=== PATIENT | female | born 1990 | race Caucasian/White ===

== ENCOUNTER → 2023-07-02 06:49 | Outpatient (REF) | payer BC, SELFPAY | LOC: PNTC 06:49 | PROVIDERS: ATTENDING PHYSICIAN Obstetrics & Gynecology | DX: O99.612 Diseases of the digestive system complicating pregnancy, second trimester (principal); O34.219 Maternal care for unspecified type scar from previous cesarean delivery; O99.891 Other specified diseases and conditions complicating pregnancy | CPT/HCPCS: 76811 ==

== ENCOUNTER → 2023-07-30 09:05 | Outpatient (REF) | payer BC, SELFPAY | LOC: PNTC 09:05 | PROVIDERS: ATTENDING PHYSICIAN Obstetrics & Gynecology | DX: O99.612 Diseases of the digestive system complicating pregnancy, second trimester (principal); O34.10 Maternal care for benign tumor of corpus uteri, unspecified trimester | CPT/HCPCS: 76816 ==

== ENCOUNTER → 2023-08-27 07:58 | Outpatient (REF) | payer BC, SELFPAY | LOC: PNTC 07:58 | PROVIDERS: ATTENDING PHYSICIAN Obstetrics & Gynecology | DX: O99.612 Diseases of the digestive system complicating pregnancy, second trimester (principal); O34.10 Maternal care for benign tumor of corpus uteri, unspecified trimester; O45.90 Premature separation of placenta, unspecified, unspecified trimester | CPT/HCPCS: 76816 ==

== ENCOUNTER → 2023-09-24 09:12 | Outpatient (REF) | payer BC, SELFPAY | LOC: PNTC 09:12 | PROVIDERS: ATTENDING PHYSICIAN Obstetrics & Gynecology | DX: O99.612 Diseases of the digestive system complicating pregnancy, second trimester (principal); O34.10 Maternal care for benign tumor of corpus uteri, unspecified trimester; O45.90 Premature separation of placenta, unspecified, unspecified trimester | CPT/HCPCS: 76816 ==

== ENCOUNTER → 2023-10-23 10:40 | Outpatient (REF) | payer BC, SELFPAY | LOC: PNTC 10:40 | PROVIDERS: ATTENDING PHYSICIAN Obstetrics & Gynecology | DX: O99.612 Diseases of the digestive system complicating pregnancy, second trimester (principal); O34.10 Maternal care for benign tumor of corpus uteri, unspecified trimester; O45.90 Premature separation of placenta, unspecified, unspecified trimester | CPT/HCPCS: 76816 ==

== ENCOUNTER 2023-11-13 05:42 | Inpatient (IN) | payer BC, SELFPAY ==
[2023-11-13 05:59] VITALS: BP 109/78; BMI 30.4
[2023-11-13 06:21] LABS: Hematocrit 36.8 % (37.0-47.0); Hemoglobin 12.3 g/dL (12.0-16.0); Mean Corp Hgb Conc. 33.4 g/dL (33.0-37.0); Mean Corpuscular Hgb 27.6 pg (27.0-31.0); Mean Corpuscular Volume 82.5 fL (81.0-99.0); Mean Platelet Volume 10.9 fL (7.4-10.4); Platelet Count 279 10^3/uL (130-400); Red Blood Cell Count 4.46 10^6/uL (4.20-5.40); Red Cell Dist. Width 17.1 % (11.5-14.5); White Blood Cell Count 7.7 10^3/uL (4.8-10.8)
[2023-11-13] MEDS: BICITRA 30 ML PO (07:17)
[2023-11-13] MEDS: TYLENOL 1000 MG PO (07:17)
[2023-11-13] MEDS: ANCEF 10 IV (07:18)
[2023-11-13] MEDS: LR 1000 IV (07:28)
[2023-11-13] MEDS: TORADOL 15 MG IV ×2 (14:41→21:11)
[2023-11-13] MEDS: PRENATAL PLUS PO (14:51)
[2023-11-14] MEDS: TORADOL 15 MG IV ×2 (03:00→08:59)
--- NOTE | 2023-11-14 03:41 | DOWNTIME ---
There was a PASSN[employer] Client Bulker Downtime on 11/14/2023 from 0100 to 11/14/2023 at 0337. Downtime documentation of patient's care, including medication administrations, has been reconciled in the electronic record per guidelines. Refer to the
patient's paper chart under the miscellaneous tab to see printed paper medication records and downtime forms.
[2023-11-14 05:03] LABS: Hematocrit 33.9 % (37.0-47.0); Hemoglobin 11.1 g/dL (12.0-16.0); Mean Corp Hgb Conc. 32.7 g/dL (33.0-37.0); Mean Corpuscular Hgb 26.9 pg (27.0-31.0); Mean Corpuscular Volume 82.3 fL (81.0-99.0); Mean Platelet Volume 11.1 fL (7.4-10.4); Platelet Count 247 10^3/uL (130-400); Red Blood Cell Count 4.12 10^6/uL (4.20-5.40); Red Cell Dist. Width 17.1 % (11.5-14.5); White Blood Cell Count 8.4 10^3/uL (4.8-10.8)
[2023-11-14] MEDS: SYNTHROID PO (05:52)
[2023-11-14] MEDS: PRENATAL PLUS 1 TABLET PO (08:44)
[2023-11-14] MEDS: MYLICON 80 MG PO (12:24)
--- NOTE | 2023-11-14 13:11 | W.PN.ANS.POP ---
Anesthesia Post Operative
- Anesthesia Post Op Note
Vital Signs Stable-See Nursing Note: Yes
Airway Patent: Yes
Adequate Pain Control: Yes
Change in Mental Status: No
Current Postoperative Nausea & Vomiting: No
Anesthesia Complications: No
General Anesthetic Recall: No
Unplanned Admission: No
Post Op Hydration Adequate: Yes
[2023-11-14] MEDS: TYLENOL 650 MG PO ×2 (13:17→21:28)
[2023-11-14] MEDS: MOTRIN 600 MG PO ×2 (15:19→21:28)
[2023-11-14] MEDS: SENOKOT-S 1 TABLET PO (16:20)
[2023-11-15] MEDS: MOTRIN 600 MG PO ×3 (04:24→23:41)
[2023-11-15] MEDS: TYLENOL 650 MG PO ×4 (04:24→23:42)
[2023-11-15] MEDS: SYNTHROID 150 MCG PO (06:08)
[2023-11-15] MEDS: SENOKOT-S 1 TABLET PO (08:55)
[2023-11-15] MEDS: PRENATAL PLUS 1 TABLET PO (08:55)
[2023-11-16] MEDS: SYNTHROID 150 MCG PO (05:48)
[2023-11-16] MEDS: TYLENOL 650 MG PO (09:14)
[2023-11-16] MEDS: SENOKOT-S 1 TABLET PO (09:14)
[2023-11-16] MEDS: MOTRIN 600 MG PO (09:14)
[2023-11-16] MEDS: PRENATAL PLUS 1 TABLET PO (09:14)
[2023-11-16 13:45] LABS: Syphilis/T. pallidum Ab Reflex Negative (Negative)
== END 2023-11-16 12:06 | disposition home or self-care (01) | DRG 787 ==
LOC: LDRP 05:42
PROVIDERS: ADMITTING PHYSICIAN Obstetrics & Gynecology; FAMILY PHYSICIAN Family Medicine
PROC: 10D00Z1 Extraction of Products of Conception, Low, Open Approach (ICD-10-PCS; 2023-11-13)
DX: O34.211 Maternal care for low transverse scar from previous cesarean delivery (principal); K50.90 Crohn's disease, unspecified, without complications; Z3A.39 39 weeks gestation of pregnancy; Z37.0 Single live birth; O99.284 Endocrine, nutritional and metabolic diseases complicating childbirth; E03.9 Hypothyroidism, unspecified; O99.62 Diseases of the digestive system complicating childbirth; O99.02 Anemia complicating childbirth; D64.9 Anemia, unspecified; E05.00 Thyrotoxicosis with diffuse goiter without thyrotoxic crisis or storm; E28.2 Polycystic ovarian syndrome; O99.824 Streptococcus B carrier state complicating childbirth; G43.909 Migraine, unspecified, not intractable, without status migrainosus; Z80.3 Family history of malignant neoplasm of breast; Z80.8 Family history of malignant neoplasm of other organs or systems; Z82.0 Family history of epilepsy and other diseases of the nervous system; Z83.79 Family history of other diseases of the digestive system; Z79.890 Hormone replacement therapy
CPT/HCPCS: 88307; 36415; 85027; 86780; 86850; 86900; 86901

== ENCOUNTER 2024-11-03 11:19 | Emergency (ER) | payer BC, SELFPAY ==
[2024-11-03 11:22] VITALS: BP 149/85
[2024-11-03 11:57] LABS: % Basophils 0.8 % (0-2); % Eosinophils 0.8 % (0-6); % Immature Granulocytes 0.2 % (0-0.5); % Lymphocytes 17.5 % (20.5-51.1); % Monocytes 5.4 % (1.7-9.3); % Neutrophils 75.3 % (42.2-75.2); Absolute Basophils 0.1 10^3/uL (0-0.2); Absolute Eosinophils 0.1 10^3/uL (0-0.7); Absolute Lymphocytes 1.7 10^3/uL (1.2-3.4); Absolute Monocytes 0.5 10^3/uL (0.1-0.6); Absolute Neutrophils 7.1 10^3/uL (1.4-6.5); Hematocrit 37.1 % (37.0-47.0); Hemoglobin 12.4 g/dL (12.0-16.0); Mean Corp Hgb Conc. 33.4 g/dL (33.0-37.0); Mean Corpuscular Hgb 26.7 pg (27.0-31.0); Mean Corpuscular Volume 79.8 fL (81.0-99.0); Mean Platelet Volume 10.3 fL (7.4-10.4); Nucleated Red Blood Cells % 0 %; Platelet Count 363 10^3/uL (130-400); Red Blood Cell Count 4.65 10^6/uL (4.20-5.40); White Blood Cell Count 9.4 10^3/uL (4.8-10.8)
[2024-11-03 12:30] LABS: ALT (SGPT) 18 U/L (0-35); AST (SGOT) 17 U/L (14-36); Albumin 4.9 g/dl (3.5-5.0); Alkaline Phosphatase 60 U/L (38-126); Blood Urea Nitrogen 13 mg/dl (7-17); Calcium 9.8 mg/dl (8.4-10.2); Carbon Dioxide 24 mmol/L (22-30); Chloride 104 mmol/L (98-107); Glucose 96 mg/dl (70-99); Potassium 4.3 mmol/L (3.5-5.1); Sodium 139 mmol/L (135-145); Total Bilirubin 0.6 mg/dl (0.2-1.3); Total Protein 8.1 g/dl (6.3-8.2); eGFR > 60.00
--- NOTE | 2024-11-03 12:46 | ED.GENMED ---
History of Present Illness
General
Chief Complaint: Problems
Source: patient
Time Seen by Provider: 11/03/24 12:27
History of Present Illness
History of Present Illness:
34-year-old female presents emergency department, LMP September 10, with report that her beta-hCG measured Sunday and Sunday or not increasing appropriately. She estimates that the value was 73,000 and then 86,000 on subsequent day. She advised to
come here by her [employer]PER[employer] from her [employer] group. Patient has multiple complaints, overall just feeling 'off associated with feeling generally shaky and freezing like she cannot get warm. This does not feel like a typical and that she did not
have the typical nausea vomiting breast tenderness. However, she has developed some mild nausea and vomiting over the last 2 days which she suspects may be related to anxiety. She has intermittent cramping of her lower back and she also notes
discomfort in her back that 'comes and goes' lasting a minute or so at a time. She also had an episode of feeling like the room was spinning over the weekend although not at this time. She has intermittent chest tightness that she suspects may be
related to anxiety. She denies dyspnea, abdominal pain, vaginal bleeding or discharge, or other complaints.
Past History
Past History
ED Past Medical History: Hypothyroidism and Other (Crohn's)
ED Past Surgical History: Cholecystectomy, Gynecological and Other (Thyroid ablation)
Social History
Tobacco: Non-smoker
Alcohol: None
Drug: None
Personal:
Living: with family
Phy Exam
Physical Exam
Physical Exam:
GENERAL: Alert , in no apparent distress
EYE: pupils equal and reactive
NECK: Supple, no significant adenopathy.
ENT: o/p clr, mmm.
CARDIAC: Regular rate and rhythm .
LUNGS: Clear breath sounds bilaterally, no acute respiratory distress, no wheezes/rales/rhonchi
ABDOMEN: Soft, mild luq pain with palpatiohn of rlq/suprapubic area, no r/g, no cvat
NEUROLOGICAL: Alert and oriented, no focal neuro deficits
SKIN: Warm and dry, skin intact.
MUSCULOSKELETAL: No edema, well perfused.
PSYCH: Normal and appropriate interaction.
Course
Orders/Labs/Results
Orders:
Orders
11/03/24 11:26
US W Transvaginal Urgent
Comment: sent in to r/o ectopic
Reason For Exam: approx 7 wks preg. hcg not rising as normal
11/03/24 11:34
Beta HCG Quantitative Urgent
Is this a screen?: No
Complete Blood Count/With Diff Urgent
Comprehensive Metabolic Panel Urgent
11/03/24 12:46
0.9% Sodium Chloride 500 ml [Nss] 500 ml IV BOLUS
11/03/24 12:49
Cardiac Monitoring- Treatment ONCE
11/03/24 14:32
Ondansetron Injectable [Zofran] 4 mg .ROUTE .STK-MED ONE
11/03/24 14:33
Ondansetron Injectable [Zofran] 4 mg IV NOW STA
Abnormal Lab Results
11/03/24
11:34
MCV 79.8 L fL
(81.0-99.0)
MCH 26.7 L pg
(27.0-31.0)
Absolute Neuts (auto) 7.1 H 10^3/uL
(1.4-6.5)
Neutrophils % 75.3 H %
(42.2-75.2)
Lymphocytes % 17.5 L %
(20.5-51.1)
11/03/24 11:34
11/03/24 11:34
Vital Signs
Initial and Last Documented VS:
Initial Vital Signs
Temp Pulse Resp BP Pulse Ox
98.0 F 104 16 149/85 100
11/03/24 11:22 11/03/24 11:22 11/03/24 11:22 11/03/24 11:22 11/03/24 11:22
Last Documented Vital Signs
Temp Pulse Resp BP Pulse Ox
98.0 F 91 12 149/85 100
11/03/24 11:22 11/03/24 13:15 11/03/24 13:15 11/03/24 11:22 11/03/24 13:15
Information
Weeks gestation: Weeks: (6w5d)
Location: Location: ([facility])
*Critical Care Note
Total Time (30-74mins, 75-104mins- exclusive of procedures): Not Applicable
Update Note
Update Note:
Patient presents to the Emergency Department with __abnormal hCG progression
Number and Complexity of Problems Addressed at the Encounter
� Chronic conditions affecting care:
� Acute Exacerbation and/or Progression of Chronic Illness:
� Differential Diagnosis includes: But not limited to ectopic , normal , threatened AB, etc. etc.
Amount and/or Complexity of Data to be Reviewed and Analyzed
� I performed an independent evaluation of and my interpretation is:
EKG:
CT:
Xrays:
Laboratory Studies:beta 154,000
Other:us There is a single live intrauterine gestation at 6 weeks 5 days +/- 1 week
� Review of other/old records reveals:
� Clinical information was obtained by an independent historian: who is bedside
� Prescriptions/Medications Considered but not given:
� Further testing considered but not performed:
Risk of Complications and/or Morbidity or Mortality of Patient Management
� Social determinants of health affecting care:
� Discussion with other providers (PCP, Hospitalists, Consultants, etc):
� Escalation of care including admission/observation vs risk of discharge considered: Patient and brought into a private room and made aware of labs and ultrasound, given copy of ultrasound. Case discussed with Dr. DELFINO
Lauri who agrees with plan for discharge. She already has an appointment for follow-up on Sunday. Patient is pleased with results, no further concerns or questions.
ED Attending Note
-
Portions of this chart may have been created with voice recognition software.� Occasional wrong word or��sound alike� substitutions may have occurred due to the inherent limitations of voice recognition software.
Discharge Plan
Departure
Patient Disposition: Home (Routine Discharge)
Date of Disposition: 11/03/24
Time of Disposition: 15:54
Patient with high blood pressure during this ER visit?: Yes
Condition: Good
Discharge Problem:
Instructions: symptoms, BLOOD PRESSURE
Prescriptions:
No Action
levothyroxine [Synthroid] 150 mcg Tablet
150 mcg PO DAILY
prenat.vits,neymar,lya-fakk-foris Tablet
1 tab PO 1XD
infliximab [Remicade] 100 mg Recon Soln
400 mg IV Q8W
ibuprofen 600 mg Tablet
600 mg PO Q6HPRN PRN (Reason: cramps) Qty: 90 0RF
Referrals:
UNKNOWN - PT DOES,NOT KNOW [Unknown Provider]
Activity Restrictions/Additional Instructions:
PLEASE SEE YOUR OB DOCTOR SCHEDULED ON SUNDAY. IF YOU DEVELOP BLEEDING, DIZZINESS, ABDOMINAL PAIN, PELVIC PAIN, CHEST PAIN, SHORTNESS OF BREATH, OR OTHER WORRISOME SIGNS, PLEASE RETURN TO THE ER IMMEDIATELY!
Interventions
Interventions:
*Risk Screen - Suicide Last Done: 11/03/24 11:22
*General Assessment Last Done: 11/03/24 13:20
*Neglect/Abuse Screening Last Done: 11/03/24 11:24
*ED- Fall Risk Assessment Last Done: 11/03/24 13:20
*ED COVID-19 Vaccine History Last Done: 11/03/24 13:20
ED-Female Genitourinary Assessment Last Done: 11/03/24 13:20
Discharge Date and Time
Print Language: SURINAMESE
[2024-11-03 13:03] VITALS: BMI 27.7
[2024-11-03] MEDS: NSS 500 IV (13:14)
[2024-11-03] MEDS: ZOFRAN 4 MG IV (14:34)
[2024-11-03 14:38] VITALS: BP 116/79
[2024-11-03 15:00] VITALS: BP 106/72
== END 2024-11-03 16:43 | disposition home or self-care (01) ==
LOC: EMR 11:19
PROVIDERS: Student in an Organized Health Care Education/Training Program; EMERGENCY PHYSICIAN Emergency Medicine; FAMILY PHYSICIAN Family Medicine
DX: O99.891 Other specified diseases and conditions complicating pregnancy (principal); M54.50 Low back pain, unspecified; O21.9 Vomiting of pregnancy, unspecified; O99.281 Endocrine, nutritional and metabolic diseases complicating pregnancy, first trimester; E03.9 Hypothyroidism, unspecified; Z3A.01 Less than 8 weeks gestation of pregnancy
CPT/HCPCS: 96374; 96361; 99284; 76801; 76817; 80053; 84702; 85025

== ENCOUNTER → 2025-02-03 09:48 | Outpatient (REF) | payer BC, SELFPAY | LOC: PNTC 09:48 | PROVIDERS: ATTENDING PHYSICIAN Obstetrics & Gynecology | DX: O09.529 Supervision of elderly multigravida, unspecified trimester (principal); Z87.59 Personal history of other complications of pregnancy, childbirth and the puerperium; K50.80 Crohn's disease of both small and large intestine without complications | CPT/HCPCS: 76811; 76817; 93976 ==